=== PATIENT | female | born 1950 | race Caucasian/White ===

== ENCOUNTER → 2019-05-07 | Outpatient (CLI) | payer BC ==
[~2019-05-07] MED LIST: DILT120 PO; DILT180 PO; EZET10 PO; LEVSOD75 PO; Omeprazole20 M1 PO; Prinivil10 MG; QVAR REDIHALE10.6 G1 IH
== END | disposition home or self-care (01) ==
LOC: LAB 18:01 → LAB SHORT 18:01
DX: R30.0 Dysuria (principal)
CPT/HCPCS: 87077; 87086; 87186

== ENCOUNTER → 2021-11-25 | Outpatient (CLI) | payer BC ==
[2021-11-25 15:02] LABS: Free Thyroxine 1.11 ng/dL (0.70-1.60)
[2021-11-25 15:05] LABS: Thyroid Stimulating Hormone 2.61 uIU/mL (0.360-4.800); Triiodothyronine, Free 2.37 pg/mL (2.18-3.98)
== END | disposition home or self-care (01) ==
LOC: LAB 08:35 → LAB SHORT 08:35
PROVIDERS: Hospitalist
DX: E03.9 Hypothyroidism, unspecified (principal)
CPT/HCPCS: 84439; 84443; 84481

== ENCOUNTER → 2023-04-13 | Outpatient (CLI) | payer BC ==
[2023-04-13 19:18] LABS: Free Thyroxine 1.14 ng/dL (0.70-1.60); Thyroid Stimulating Hormone 1.85 uIU/mL (0.360-4.800)
== END | disposition home or self-care (01) ==
LOC: LAB SHORT 17:52 → LAB 17:52
PROVIDERS: Hospitalist
DX: E03.9 Hypothyroidism, unspecified (principal)
CPT/HCPCS: 84439; 84443